=== PATIENT | female | born 1980 | race Two or more races ===

== ENCOUNTER 2016-11-18 15:39 | Emergency (ER) | payer OTHER ==
[~2016-11-18] VITALS: Ht 154.9 cm; Wt 97.5 kg
[2016-11-18 16:09] VITALS: BP 138/90
[2016-11-18] MEDS ORDERED: KETOROLAC TROMETH 60MG/2ML VIAL IM ONE (16:30)
== END 2016-11-18 17:42 | disposition home or self-care (01) ==
LOC: ER 15:45
DX: S80.02XA Contusion of left knee, initial encounter (principal); W01.0XXA Fall on same level from slipping, tripping and stumbling without subsequent striking against object, initial encounter; Y93.89 Activity, other specified; Y99.8 Other external cause status; Y92.89 Other specified places as the place of occurrence of the external cause
CPT/HCPCS: 73564; 96372; 99284; J1885